=== PATIENT | male | born 1960 | race Two or more races ===

== ENCOUNTER 2016-12-13 19:01 | Inpatient (IN) | payer BC, MEDICAID ==
[~2016-12-13] VITALS: Ht 177.8 cm; Wt 82.1 kg
[2016-12-13 19:35] LABS: ANION GAP 12 (5-14); CALCIUM, SERUM 9.3 mg/dL (8.5-10.1); CARBON DIOXIDE 29 mmol/L (21-32); CHLORIDE 106 mmol/L (98-107); CREATININE 0.8 mg/dL (0.6-1.3); GFR 101 mL/min (>60); GLUCOSE 160 mg/dL (74-106); POTASSIUM 4.1 mmol/L (3.5-5.1); SODIUM SERUM 142 mmol/L (136-145); UREA NITROGEN, BLOOD 11 mg/dL (7-18)
[2016-12-13 19:41] LABS: BASOPHILS % (AUTO) 0.5 % (0.0-2.0); DIFF TOTAL % 100 %; EOSINOPHILS # (AUTO) 0.1 /CMM (0.0-0.7); EOSINOPHILS % (AUTO) 1.5 % (0.0-6.0); HEMATOCRIT 46 % (39-51); HEMOGLOBIN 15.3 g/dL (13.5-17.5); LYMPHOCYTES # (AUTO) 2.1 /CMM (0.8-4.8); LYMPHOCYTES % (AUTO) 24.4 % (20.0-44.0); MEAN CORPUSCULAR HEMOGLOBIN 30 PG (26.0-33.0); MEAN CORPUSCULAR HGB CONC 34 g/dl (31.0-36.0); MEAN CORPUSCULAR VOLUME 89 fL (80-96); MONOCYTES # (AUTO) 0.7 /CMM (0.1-1.30); MONOCYTES % (AUTO) 8.3 % (2.0-12.0); NEUTROPHILS # (AUTO) 5.6 /CMM (1.8-8.9); NEUTROPHILS % (AUTO) 65.3 % (43.0-81.0); PLATELET COUNT (AUTO) 209 /CMM (150-450); RED BLOOD CELL COUNT(AUTO) 5.12 MIL/uL (4.5-6.0); WHITE BLOOD COUNT (AUTO) 8.6 K/uL (4.3-11.0)
[2016-12-13 19:45] LABS: TROPONIN I < 0.017 ng/mL (0.00-0.056)
[2016-12-13 19:46] LABS: INR 0.98 (0.87-1.13); PROTHROMBIN TIME 10.6 SECS (9.5-12.7)
[2016-12-13] MEDS ORDERED: NITROGLYCERIN PACKET 1 GM PACKET ONE (19:56)
[2016-12-13] MEDS ORDERED: NITROGLYCERIN PACKET 1 GM PACKET TD ONE (20:00)
[2016-12-13 20:15] LABS: ADD UA MICROSCOPIC YES; KETONES,URINE NEGATIVE (NEGATIVE); LEUKOCYTE ESTERASE ,URINE NEGATIVE (NEGATIVE); PH,URINE 6.5 (5.0-8.0)
[2016-12-13 20:28] LABS: ADD URINE CULTURE NO; RBC,URINE 0-3 /HPF (0-2); WBC,URINE 0-2 /HPF (0-3)
[2016-12-13 20:45] VITALS: BP 133/76
[2016-12-13] MEDS ORDERED: ZOLPIDEM TARTRATE 5 MG TABLET PO PRN (21:00)
[2016-12-13] MEDS ORDERED: MORPHINE SULFATE INJ 2 MG/ML DISP.SYRIN IV PRN (21:00)
[2016-12-13] MEDS ORDERED: ACETAMINOPHEN 325 MG TABLET PO PRN (21:00)
[2016-12-13] MEDS ORDERED: HYDROCODONE/APAP 5/325MG 1 EACH TABLET PO PRN (21:00)
[2016-12-13] MEDS ORDERED: MAGNESIUM HYDROXIDE 30 ML UDC PO PRN (21:00)
[2016-12-13] MEDS ORDERED: MAG HYDROX/AL HYDROX/SIMETH 30 ML UDC PO PRN (21:00)
[2016-12-13] MEDS ORDERED: ENOXAPARIN SODIUM 40 MG/0.4 ML DISP.SYRIN SQ SCH (21:00)
[2016-12-13] MEDS ORDERED: Z GUARD REMEDY 2 OZ OINT TP PRN (21:00)
[2016-12-13] MEDS ORDERED: ONDANSETRON HCL/PF 4 MG/2 ML VIAL IVP PRN (21:00)
[2016-12-13] MEDS: NITROGLYCERIN 30 GM TUBE TOP SCH (22:00)
[2016-12-13 22:56] VITALS: BP 133/76
[2016-12-14] VITALS: BP 104/78
[2016-12-14 04:00] VITALS: BP 106/69
[2016-12-14 07:08] VITALS: BP 120/76
[2016-12-14] MEDS ORDERED: PANTOPRAZOLE 40 MG TABLET.DR PO SCH (07:30)
[2016-12-14 07:56] LABS: BASOPHILS # (AUTO) 0.1 /CMM (0.0-0.2); BASOPHILS % (AUTO) 0.7 % (0.0-2.0); DIFF TOTAL % 100 %; EOSINOPHILS # (AUTO) 0.1 /CMM (0.0-0.7); EOSINOPHILS % (AUTO) 1.7 % (0.0-6.0); HEMATOCRIT 42 % (39-51); HEMOGLOBIN 14.1 g/dL (13.5-17.5); LYMPHOCYTES # (AUTO) 1.9 /CMM (0.8-4.8); LYMPHOCYTES % (AUTO) 23.7 % (20.0-44.0); MEAN CORPUSCULAR HEMOGLOBIN 30 PG (26.0-33.0); MEAN CORPUSCULAR HGB CONC 34 g/dl (31.0-36.0); MEAN CORPUSCULAR VOLUME 89 fL (80-96); MONOCYTES # (AUTO) 0.7 /CMM (0.1-1.30); MONOCYTES % (AUTO) 8.3 % (2.0-12.0); NEUTROPHILS # (AUTO) 5.3 /CMM (1.8-8.9); NEUTROPHILS % (AUTO) 65.6 % (43.0-81.0); PLATELET COUNT (AUTO) 190 /CMM (150-450); RED BLOOD CELL COUNT(AUTO) 4.69 MIL/uL (4.5-6.0)
[2016-12-14 08:00] VITALS: BP 120/76
[2016-12-14] MEDS ORDERED: ATOR10TA PO (08:07)
[2016-12-14] MEDS ORDERED: METO25TA6 PO (08:07)
[2016-12-14] MEDS ORDERED: FAMO20TA8 PO (08:07)
[2016-12-14] MEDS ORDERED: CLOP75TA2 PO (08:07)
[2016-12-14] MEDS ORDERED: AMLO5TAB2 PO (08:07)
[2016-12-14] MEDS ORDERED: LISI40TA4 PO (08:07)
[2016-12-14] MEDS ORDERED: TAMS0.4C34 PO (08:07)
[2016-12-14 08:10] LABS: CALCIUM, SERUM 8.9 mg/dL (8.5-10.1); CREATININE 0.9 mg/dL (0.6-1.3); PHOSPHORUS 3.8 mg/dL (2.5-4.9); POTASSIUM 4.5 mmol/L (3.5-5.1)
[2016-12-14] MEDS ORDERED: ASPIRIN 325 MG TABLET PO SCH (09:00)
[2016-12-14] MEDS: NITROGLYCERIN 30 GM TUBE TOP SCH (09:11)
[2016-12-14 11:05] LABS: THYROID STIMULATING HORMONE 0.961 uIU/mL (0.358-3.74)
[2016-12-14 11:42] LABS: TROPONIN I < 0.017 ng/mL (0.00-0.056)
[2016-12-14] MEDS ORDERED: FAMOTIDINE (20 MG) 20 MG TABLET PO SCH (12:00)
[2016-12-14] MEDS ORDERED: AMLODIPINE BESYLATE 5 MG TABLET PO SCH (12:00)
[2016-12-14] MEDS ORDERED: TAMSULOSIN 0.4 MG CAP.SR.24H PO SCH (12:00)
[2016-12-14] MEDS ORDERED: METOPROLOL TARTRATE 25 MG TABLET PO SCH (12:00)
[2016-12-14] MEDS ORDERED: ATORVASTATIN 10 MG TABLET PO SCH (12:00)
[2016-12-14] MEDS ORDERED: LISINOPRIL (20MG) 20 MG TABLET PO SCH (12:00)
[2016-12-14] MEDS ORDERED: CLOPIDOGREL BISULFATE 75 MG TABLET PO SCH (12:00)
[2016-12-14 13:14] VITALS: BP 124/86
[2016-12-15] MEDS ORDERED: PANTOPRAZOLE 40 MG TABLET.DR PO SCH (07:30)
== END 2016-12-14 13:30 | disposition home or self-care (01) | DRG 198 ==
LOC: ER 19:02 → TELE 20:16 → MED 12-14 11:15
PROVIDERS: ADMIT Internal Medicine; ATTEND Internal Medicine
DX: I25.119 Atherosclerotic heart disease of native coronary artery with unspecified angina pectoris (principal); I10 Essential (primary) hypertension; E78.5 Hyperlipidemia, unspecified; F17.210 Nicotine dependence, cigarettes, uncomplicated; I25.10 Atherosclerotic heart disease of native coronary artery without angina pectoris; Z98.61 Coronary angioplasty status
CPT/HCPCS: 36415; 71010-TC; 80048-TC; 80061-TC; 81000-TC; 83735-TC; 83880; 84100-TC; 84439-TC; 84443-TC; 84484-TC; 85025-TC; 85730-TC; 87081-TC; 93307-TC; A4606; J1650; Z7610